=== PATIENT | male | born 1975 | race Caucasian/White ===

== ENCOUNTER 2021-02-08 23:00 | Emergency (ER) | payer OTHER ==
[2021-02-08 23:09] VITALS: BP 136/97; PULSE 76; TEMP 98.8; BMI 20.6
== END 2021-02-09 00:24 | disposition home or self-care (01) ==
LOC: FER 23:00
PROC: 0H9QXZZ Drainage of Finger Nail, External Approach (ICD-10-PCS; principal; 2021-02-08)
DX: S60.112A Contusion of left thumb with damage to nail, initial encounter (principal); W23.1XXA Caught, crushed, jammed, or pinched between stationary objects, initial encounter
CPT/HCPCS: 73140-TC-LT-FY; 99283-25

== ENCOUNTER 2022-10-01 15:13 | Emergency (ER) | payer OTHER ==
[2022-10-01 15:28] VITALS: BP 132/78; PULSE 72; RESP 18; TEMP 98.5; BMI 23.7
== END 2022-10-01 16:35 | disposition home or self-care (01) ==
LOC: FER 15:13
DX: T17.208A Unspecified foreign body in pharynx causing other injury, initial encounter (principal)
CPT/HCPCS: 70360-TC-FY; 99283-25

== ENCOUNTER 2023-09-11 04:39 | Day surgery (SDC) | payer OTHER ==
[2023-09-07 15:58] VITALS: BMI 24.5
[2023-09-11] MEDS ORDERED: LIDOCAINE VISCOUS 2% ORAL/TOP 15 ML UNIT-DOSE CUP ONE (09:48)
[2023-09-11 10:32] VITALS: TEMP 98.6
[2023-09-11 11:06] VITALS: BP 107/72; PULSE 69; RESP 18
== END 2023-09-11 11:08 | disposition home or self-care (01) ==
LOC: JASU-ENDO 04:39
PROVIDERS: ATTEND Internal Medicine Gastroenterology
PROC: 0DB98ZX Excision of Duodenum, Via Natural or Artificial Opening Endoscopic, Diagnostic (ICD-10-PCS; 2023-09-11)
PROC: 0DB78ZX Excision of Stomach, Pylorus, Via Natural or Artificial Opening Endoscopic, Diagnostic (ICD-10-PCS; 2023-09-11)
PROC: 0DB28ZX Excision of Middle Esophagus, Via Natural or Artificial Opening Endoscopic, Diagnostic (ICD-10-PCS; 2023-09-11)
PROC: 0DB38ZX Excision of Lower Esophagus, Via Natural or Artificial Opening Endoscopic, Diagnostic (ICD-10-PCS; 2023-09-11)
PROC: 0DBH8ZX Excision of Cecum, Via Natural or Artificial Opening Endoscopic, Diagnostic (ICD-10-PCS; principal; 2023-09-11 10:00)
DX: Z12.11 Encounter for screening for malignant neoplasm of colon (principal); K64.8 Other hemorrhoids; K21.00 Gastro-esophageal reflux disease with esophagitis, without bleeding; K29.80 Duodenitis without bleeding; K29.50 Unspecified chronic gastritis without bleeding; B96.81 Helicobacter pylori [H. pylori] as the cause of diseases classified elsewhere
CPT/HCPCS: 88305-TC; 88341-TC; 88342-TC